=== PATIENT | female | born 1995 | race Caucasian/White ===

== ENCOUNTER 2019-02-16 21:30 | Emergency (ER) | payer SELFPAY ==
[~2019-02-16] VITALS: Ht 160 cm; Wt 102.1 kg
[2019-02-16 21:44] VITALS: BP 116/58; PULSE 90; RESP 20; Ht 160 cm; Wt 102.1 kg
[2019-02-16] MEDS ORDERED: DIPHTH/TET/ACEL PERTUSS (ADULT) 0.5 ML VIAL IM* ONE (22:30)
[2019-02-16] MEDS ORDERED: MUPIROCIN 2% 22 GM OINT TOP ONE (22:30)
[2019-02-16] MEDS ORDERED: IBUP-1561 PO (23:06)
[2019-02-16] MEDS ORDERED: ACET-141 PO (23:06)
--- NOTE | 2019-02-16 23:11 | ERD ---
ER Documentation Chief Complaint Chief Complaint Left palm lac w/ tin can HPI 23-year-old female transferred left palm laceration after cutting over a can at work today. She states that she is run open up a can of soda accidentally cut her palm. She states that she put coffee-ground over it to stop the bleeding. She states that she has 5 out of 10 pain. Unknown when her last tetanus shot was. No significant past medical history. Patient is right-handed. No other modifying factors noted, no treatment tried at home. ROS All systems reviewed and are negative except as per history of present illness. Medications Home Meds Active Scripts Ibuprofen* (Motrin*) 400 Mg Tab, 400 MG PO Q6, #30 TAB Prov:BEVERLY DE LA FUENTE 02/16/19 Acetaminophen* (Acetaminophen*) 500 MG Extra Strength Tablet, 500 MG PO Q4H PRN for PAIN AND OR ELEVATED TEMP, #30 TAB Prov:BEVERLY DE LA FUENTE 02/16/19 Allergies Allergies: Coded Allergies: No Known Allergy (Unverified , 02/16/19) PMhx/Soc Medical and Surgical Hx: pt denies Medical Hx, pt denies Surgical Hx Hx Alcohol Use: No Hx Substance Use: No Hx Tobacco Use: No Smoking Status: Never smoker FmHx Family History: No coronary disease Physical Exam Vitals Vital Signs Date Temp Pulse Resp B/P (MAP) Pulse Ox O2 O2 Flow FiO2 Time Delivery Rate 02/16/19 98.9 90 20 116/58 98 21:44 (77) Physical Exam Const: No acute distress Resp: Clear to auscultation bilaterally Cardio: Regular rate and rhythm, no murmurs, cap refill less than 2 seconds in all fingers of the left hand Abd: Soft, non tender, non distended. Normal bowel sounds Skin: Left palm laceration noted about 3 cm, superficial, no active bleeding Back: No midline or flank tenderness Ext: No cyanosis, or edema Neur: Awake and alert, left hand sensation intact Psych: Normal Mood and Affect Results 24 hrs Current Medications Medications Dose Sig/Chloe Start Time Status Last (Trade) Ordered Route PRN Stop Time Admin Dose Reason Admin Mupirocin 1 applic ONCE ONCE 02/16/19 DC 02/16/19 (Bactroban) TOP 22:30 22:59 02/16/19 22:31 Diphtheria/ 0.5 ml ONCE ONCE 02/16/19 DC 02/16/19 Tetanus/Acell IM* 22:30 22:39 Pertussis 02/16/19 22:31 (Adacel) Procedures/MDM Medical Decision Making: Patient presents for left hand palmar side laceration Patient appeared well on physical exam. Examination of the laceration shows that is too for superficial for sutures repair. The laceration site was irrigated, patient was provided with wound care. Patient advised regarding wound care Patient's tetanus status was updated in the ER. Patient advised to follow up with PCP in 1-2 days. Patient advised to return to ED for new or worsening symptoms. Patient stable on discharge from the ED. Disclaimer: Inadvertent spelling and grammatical errors are likely due to EHR/dictation software use and do not reflect on the overall quality of patient care. Also, please note that the electronic time recorded on this note does not necessarily reflect the actual time of the patient encounter. Departure Diagnosis: Primary Impression: Laceration Condition: Fair Patient Instructions: Laceration, All Referrals: [facility] YOU HAVE RECEIVED A MEDICAL SCREENING EXAM AND THE RESULTS INDICATE THAT YOU DO NOT HAVE A CONDITION THAT REQUIRES URGENT TREATMENT IN THE EMERGENCY DEPARTMENT. FURTHER EVALUATION AND TREATMENT OF YOUR CONDITION CAN WAIT UNTIL YOU ARE SEEN IN YOUR DOCTORS OFFICE WITHIN THE NEXT 1-2 DAYS. IT IS YOUR RESPONSIBILITY TO MAKE AN APPOINTMENT FOR FOLOW-UP CARE. IF YOU HAVE A PRIMARY DOCTOR --you should call your primary doctor and schedule an appointment IF YOU DO NOT HAVE A PRIMARY DOCTOR YOU CAN CALL OUR PHYSICIAN REFERRAL HOTLINE AT IF YOU CAN NOT AFFORD TO SEE A PHYSICIAN YOU CAN CHOSE FROM THE FOLLOWING [facility] [address] [facility] [address] [facility] [facility] [address] [facility] [address] [facility] [address] [facility]. [facility]. [address] Additional Instructions: Llame al doctor CURTIS y jennifer maude MURALI PARA DENTRO DE 1-2 GARIBAY.Dgale a la sec retaria que nosotros le instruimos hacer esta murali.Avise o llame si de leon condicin se empeora antes de la murali. Regresa aqui si peor o no mejor. BEVERLY DE LA FUENTE DO February 16, 2019 23:11
== END 2019-02-16 23:35 | disposition home or self-care (01) ==
LOC: FTE 21:30
DX: S61.412A Laceration without foreign body of left hand, initial encounter (principal); W26.8XXA Contact with other sharp object(s), not elsewhere classified, initial encounter; Y92.89 Other specified places as the place of occurrence of the external cause; Z23 Encounter for immunization
CPT/HCPCS: 90471; 90715